=== PATIENT | female | born 1955 | race Caucasian/White ===

== ENCOUNTER 2023-12-11 00:44 | Inpatient (IN) | payer MEDICARE, SELFPAY ==
[2023-12-10 20:53] VITALS: BP 149/98
[2023-12-10 21:26] LABS: % Basophils 0.4 % (0-2); % Immature Granulocytes 0.4 % (0-0.5); % Lymphocytes 14.6 % (20.5-51.1); % Monocytes 6.1 % (1.7-9.3); % Neutrophils 78.5 % (42.2-75.2); Absolute Lymphocytes 1.1 10^3/uL (1.2-3.4); Absolute Monocytes 0.5 10^3/uL (0.1-0.6); Absolute Neutrophils 5.9 10^3/uL (1.4-6.5); Hematocrit 33.4 % (37.0-47.0); Mean Corp Hgb Conc. 35.9 g/dL (33.0-37.0); Mean Corpuscular Hgb 31.4 pg (27.0-31.0); Mean Corpuscular Volume 87.4 fL (81.0-99.0); Mean Platelet Volume 10.7 fL (7.4-10.4); Nucleated Red Blood Cells % 0 %; Platelet Count 193 10^3/uL (130-400); Red Blood Cell Count 3.82 10^6/uL (4.20-5.40); Red Cell Dist. Width 12.5 % (11.5-14.5); White Blood Cell Count 7.5 10^3/uL (4.8-10.8)
[2023-12-10 21:51] LABS: ALT (SGPT) 19 U/L (0-35); AST (SGOT) 30 U/L (14-36); Albumin 4.5 g/dl (3.5-5.0); Alkaline Phosphatase 93 U/L (38-126); Blood Urea Nitrogen 21 mg/dl (7-17); Calcium 9.8 mg/dl (8.4-10.2); Carbon Dioxide 24 mmol/L (22-30); Chloride 95 mmol/L (98-107); Glucose 117 mg/dl (70-99); Potassium 4.4 mmol/L (3.5-5.1); Sodium 126 mmol/L (135-145); Total Bilirubin 0.5 mg/dl (0.2-1.3); Total Protein 6.6 g/dl (6.3-8.2); eGFR > 60.00
--- NOTE | 2023-12-10 21:58 | ED.GENMED ---
History of Present Illness
General
Chief Complaint: Change in Mental Status
Source: patient and family
Exam Limitations: altered mental status
Time Seen by Provider: 12/10/23 21:46
History of Present Illness
History of Present Illness:
This is a 68 year old female that is brought in by family with c/o change in mental status. Family states that this afternoon patient became confused. States that she is unable to remember things. States that she was fine this morning as she had
conversation with friends on the phone. States that she called a friend around 6-7 pm tonight and was confused. States that at one point she was talking but made no sense. States that they also feel that she did not take her medication today as
there were pills in her bottles. Denies any fever, chills chest pain, SOB, abd pain, nausea, vomiting, diarrhea, headache, dizziness, urinary burning
Past History
Past History
ED Past Medical History: Psychiatric (Anxiety, depression, Bipolar, ADHD, ) and Other (Terrets)
ED Past Surgical History: Orthopedic (Foot surgery, ), Tonsilectomy and Other (Facial surgery, Breast surgery, oral surgery, )
Social History
Tobacco: Non-smoker
Alcohol: Occasional
Personal: Single
Living: alone
Review of Systems
Review of Systems
All Other Systems: ROS reviewed and negative except as documented in HPI and ROS
Constitutional: Reports no symptoms; Denies fever or chills
EENT: Reports no symptoms
Respiratory: Reports no symptoms; Denies cough or trouble breathing
Cardiac: Reports no symptoms; Denies chest pain
ABD/GI: Reports no symptoms; Denies abdominal pain, nausea, vomiting or diarrhea
: Reports no symptoms; Denies dysuria, frequency or urgency
Musculoskeletal: Reports no symptoms
Skin: Reports no symptoms
Neurological: Reports other (Unable to remember things Confused); Denies dizzy or headache
Psychiatric: Reports no symptoms
Phy Exam
General Physical Exam
General Presentation: no apparent distress
General age: appears stated age
General Skin: warm and dry
General Habitus: normal
General Mental: confused (but able to answer some questions and follows commands, doesn't remember talking with friend)
General Hydration: appears well hydrated
ENT Exam
ENT Exam: TM's normal, pharynx normal and neck supple
Eye Exam
Eye Exam: PERRL, EOMI and other (contusion noted on the lower lids)
Cardiovascular Exam
Cardiovascular Exam: regular rate/rhythm, no edema, no murmur and normal peripheral pulses
Pulmonary Exam
Pulmonary Exam: lungs clear, no respiratory distress, no rales, chest non tender, no crackles, no rhonchi, no wheezing and no cough
Gastrointestinal Exam
Gastrointestinal Exam: normal bowel sounds, non tender, soft, no organomegaly, no pulsatile mass and non distended
NIH Stroke Score
Level of Consciousness: 0 - Alert
LOC questions: 1-Answers one correctly
LOC Commands: 0-Performs both correctly
Best Gaze: 0-Normal
Visual Anderson: 0=Normal, no visual loss
Facial palsy: 0=Normal, symmetrical
Motor - Right Arm: 0=No drift 10 seconds
Motor - Left Arm: 0=No drift 10 seconds
Motor - Right Le-No drift 5 seconds
Motor - Left Le-No drift 5 seconds
Limb Ataxia: 0-Absent
Sensation: 0-Normal
Best Language: 0-No aphasia
Dysarthria: 0-Normal
Extinction and Inattention: 0-No abnormality
Total Score:: 1
Musculoskeletal Exam
Musculoskeletal Exam: full ROM, no edema and other (Hand grasp and push pulls equal)
Skin Exam
Skin Exam: normal color, warm/dry, no petechia and other (contusion on the lower eye lids)
Psychiatric Exam
Psychiatric Exam: other (calm but confused)
Course
Orders/Labs/Results
Orders:
Orders
12/10/23 21:19
Complete Blood Count/With Diff Urgent
Comprehensive Metabolic Panel Urgent
12/10/23 21:33
CT Head W/o Iv Contrast Urgent
Comment:
Reason For Exam: altered mental status
12/10/23 21:58
0.9% Sodium Chloride 1000 ml [Nss] 1,000 ml IV BOLUS
12/10/23 22:08
Electrocardiogram (*1) Urgent
Reason for Study: TIA/Stroke
EKG- Treatment ONCE
12/10/23 22:15
Troponin I Urgent
12/10/23 23:02
Urinalysis Reflex To Culture Urgent
Date Specimen was Collected: 12/10/23
Time Specimen was Collected: 23:01
Urine Microscopic Reflex Cult Urgent
Abnormal Lab Results
12/10/23 12/10/23
21:19 23:02
RBC 3.82 L 10^6/uL
(4.20-5.40)
Hct 33.4 L %
(37.0-47.0)
MCH 31.4 H pg
(27.0-31.0)
MPV 10.7 H fL
(7.4-10.4)
Absolute Lymphs (auto) 1.1 L 10^3/uL
(1.2-3.4)
Neutrophils % 78.5 H %
(42.2-75.2)
Lymphocytes % 14.6 L %
(20.5-51.1)
Sodium 126 L mmol/L
(135-145)
Chloride 95 L mmol/L
(98-107)
BUN 21 H mg/dl
(7-17)
Glucose 117 H mg/dl
(70-99)
Urine Ketones Trace A
(Negative)
Leukocyte Esterase Rfl Trace A
(Negative)
Urine Bacteria (Reflex) Few A
(Negative)
12/10/23 21:19
12/10/23 21:19
Hyponatremia, Chloride low. Dehydration. hyperglycemia, Urine negative for infection.
Vital Signs
Initial and Last Documented VS:
Initial Vital Signs
Temp Pulse Resp BP Pulse Ox
98.2 F 90 16 149/98 99
12/10/23 20:53 12/10/23 20:53 12/10/23 20:53 12/10/23 20:53 12/10/23 20:53
Last Documented Vital Signs
Temp Pulse Resp BP Pulse Ox
98.2 F 79 14 146/85 95
12/10/23 20:53 12/10/23 23:30 12/10/23 23:30 12/10/23 23:13 12/10/23 23:30
MDM/Problems Addressed
Differential Diagnosis Includes:
Hyponatremia. Possible Seizure, Bipolar episode
MDM/Problems Addressed:
This is a 68 year old female that comes in with family. Family states that the patient is confused. staes that she was fine this morning and tonight she called and friend and was confused. states that she also for a few min was trying to talk but
she was not making any sense.
will check labs. Urine. CT head.
back into see patient and Niece. Explained that her blood work shows that her Sodium is low. CT of head result is pending. With patient confusion, will admit. Hospitalist notified
Chronic conditions affecting care: Psychiatric illness
Acute Exacerbation and/or Progression of Chronic Illness: Psychiatric illness
*Radiology
Radiology exam reviewed: radiology read reviewed (Chest head night hawk- No acute intracranial hemorrhage, mass or mass-effect. 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 Mild periventricular white matter changes and
atrophy. Skull intact. )
*Pulse Oximetry
Patient hypoxic: no
*EKG
Interpreted by ED Provider?: Yes
Heart Rate: 74
Rate: normal
Rhythm: sinus
Kyle: normal axis
Interval: normal interval
QRS Pattern: normal QRS
Ischemia: no ischemia
*Critical Care Note
Total Time (30-74mins, 75-104mins- exclusive of procedures): Not Applicable
ED Attending Note
-
Portions of this chart may have been created with voice recognition software.� Occasional wrong word or��sound alike� substitutions may have occurred due to the inherent limitations of voice recognition software.
Discharge Plan
Departure
Patient Disposition: Admit
Date of Disposition: 12/10/23
Time of Disposition: 23:39
Admit to: Med/Surg
Presentation/result/management discussed w/ accepting MD/DO: Hospitalist
Patient with high blood pressure during this ER visit?: Yes
Condition: Good
Covid-19: Not Applicable
Discharge Problem:
Acute hyponatremia, Mental confusion
Prescriptions:
No Action
rosuvastatin 10 mg tablet
10 mg PO DAILY
lamotrigine 200 mg tablet extended release 24hr
200 mg PO BID
Ingrezza 40 mg capsule
40 mg PO DAILY
Trintellix 20 mg Tablet
20 mg PO DAILY
Patient Comments:
02/07/22: confirmed with nurse that patient takes this medication
diphenhydramine HCl 50 mg Capsule
50 mg PO HS PRN (Reason: sleep )
multivitamin Tablet
1 tab PO DAILY
calcium 600 mg Capsule
1,800 mg PO DAILY
omega 6-gmm-kby-fish oil [Fish Oil] 1,200 (144-216) mg Capsule
1 cap PO DAILY
biotin 5,000 mcg Tablet,Chewable
5,000 mcg PO DAILY
Glucosamine Triple Strength
2 tab PO DAILY
melatonin
PO HS
Rx Instructions:
unknown dose
minoxidil 10 mg Tablet
10 mg PO DAILY
famotidine
PO HS
Rx Instructions:
unknown dose
finasteride
PO DAILY
Rx Instructions:
unknown dose
Referrals:
UNKNOWN - PT DOES,NOT KNOW [Family Provider] -
Interventions
Interventions:
*Risk Screen - Suicide Last Done: 12/10/23 21:05
*General Assessment Last Done: 12/10/23 21:05
*Neglect/Abuse Screening Last Done: 12/10/23 21:05
ED- Neurological Assessment Last Done: 12/10/23 21:05
Discharge Date and Time
Print Language: ALBANIAN
[2023-12-10] MEDS: NSS 1000 IV (22:06)
[2023-12-10 22:41] VITALS: BP 145/86
[2023-12-10 22:44] LABS: Troponin I < 0.012 ng/ml
[2023-12-10 22:54] VITALS: BMI 24.2
[2023-12-10 23:09] LABS: Urine Albumin Negative (Neg - Trace); Urine Bilirubin Negative (Negative); Urine Character Clear (Clear); Urine Color Straw; Urine Glucose Negative (Negative); Urine Ketone Trace (Negative); Urine Leukocyte Trace (Negative); Urine Nitrite Negative (Negative); Urine Occult Blood Negative (Negative); Urine Urobilinogen Negative (Neg - 1+)
[2023-12-10 23:13] VITALS: BP 146/85
[2023-12-10 23:21] LABS: Urine Bacteria Few (Negative); Urine Red Blood Cell 0-2 /HPF (0-2); Urine Squamous Cell 0-2 /LPF (Few)
[2023-12-11 00:03] VITALS: BP 110/83
--- NOTE | 2023-12-11 00:12 | HPS.HSE ---
Family Physician
-
Family Physician: NOT KNOW UNKNOWN - PT DOES
Chief Complaint
-
AMS
History of Present Illness
68F HX Anxiety on lamotrigine , finasteride for BPH seen at ER for evaluation of AMS.
- noticed by family and frind for confusion , non sensicl conversation in the evening
- seems normal mental state in AM while she is on the phone with friend
- Non acute focal weakness
ROS
Denies any fever, chills chest pain, SOB, abd pain, nausea, vomiting, diarrhea, headache, dizziness, urinary burning
Medical History
Past Medical History
Past Medical History: Reports Other
Additional Past Medical History:
Anxiety, depression, Bipolar, ADHD,
Tourette syndrome
Past Surgical History: Reports Other
Additional Past Surgical History:
Foot surgery,
Tonsillectomy
Facial surgery
Breast surgery
Oral surgery
Social History
Tobacco: Non-smoker
Alcohol: Other (Reports she drinks alot but Niece at bed side denied )
Personal: Single
Living: Alone
Family History
Family History: Not pertinent
Allergies / Home Medications
Allergies reflects when Allergies were last updated in [facility].
Home Medications with original date entered in [facility]
Allergy/Medication List:
Allergies
Allergy/AdvReac Type Severity Reaction Status Date / Time
No Known Allergies Allergy Unverified 12/10/23 23:16
Home Medications
lamotrigine 200 mg tablet,extended release 24 hr 200 mg PO BID Mental Health/Anxiety 02/04/22
rosuvastatin 10 mg tablet 10 mg PO DAILY High cholesterol 02/04/22
valbenazine 40 mg capsule (Ingrezza) 40 mg PO DAILY Tourette Syndrome 02/04/22
vortioxetine 20 mg tablet (Trintellix) 20 mg PO DAILY Mental Health/Anxiety 02/07/22
diphenhydramine HCl 50 mg capsule 50 mg PO HS PRN sleep 02/09/22
Glucosamine Triple Strength 2 tab PO DAILY 12/10/23
biotin 5,000 mcg chewable tablet 5,000 mcg PO DAILY 12/10/23
calcium 600 mg capsule 1,800 mg PO DAILY 12/10/23
famotidine PO HS 12/10/23
finasteride PO DAILY 12/10/23
melatonin PO HS 12/10/23
minoxidil 10 mg tablet 10 mg PO DAILY 12/10/23
multivitamin 1 tab PO DAILY 12/10/23
omega 9-nze-cvw-fish oil 1,200 mg (144 mg-216 mg) capsule (Fish Oil) 1 cap PO DAILY 12/10/23
Review of Systems
-
Constitutional: Reports No Symptoms
EENT: Reports No Symptoms
Respiratory: Reports No Symptoms
Cardiac: Reports No Symptoms
Abdomen/GI: Reports No Symptoms
: Reports No Symptoms
Musculoskeletal: Reports No Symptoms
Skin: Reports No Symptoms
Neurological: Reports See HPI
Endocrine: Reports No Symptoms
Hematologic/Lymphatic: Reports No Symptoms
Psych: Reports No Symptoms
Physical Exam
Vital Signs
Vital Signs
Temp Pulse Resp BP Pulse Ox
98.2 F 83 19 110/83 97
12/10/23 20:53 12/11/23 00:03 12/11/23 00:03 12/11/23 00:03 12/11/23 00:03
Physical Exam
General: Well Developed, No Apparent Distress and Other (thin )
HEENT: NormoCephalic, Moist mucous membranes, Atraumatic and Other (b/l lower eylids echymosis - reports she had surgery )
Respiratory: Clear
Cardiac: S1/S2 and Regular Rhythm; No Murmur or Rub
GI: Soft, Non Tender, Non Distended and Normal Bowel Sounds; No Organomegaly
Rectal: Deferred by Provider
Musculoskeletal: No Clubbing, No Cyanosis and No Edema
Skin: No Rash
Neuro: Nonfocal/grossly intact
Laboratory Results
-
12/10/23 21:19
12/10/23 21:19
Laboratory Results
Total Bilirubin 0.5 mg/dl (0.2-1.3) 12/10/23 21:19
AST 30 U/L (14-36) 12/10/23 21:19
ALT 19 U/L (0-35) 12/10/23 21:19
Alkaline Phosphatase 93 U/L (38-126) 12/10/23 21:19
Troponin I < 0.012 ng/ml 12/10/23 22:15
Data Reviewed
-
CT Scan: Report Reviewed by me
Lab Data: Labs Reviewed by me
Impression/Plan
-
Reviewed VS: unremarkable
Data
Unremarkable CBC
Na 126 - baseline is 135
eGFR > 60
NEG TPNI
NEG UA
HCT :
No acute process.
Tiny chronic appearing Rt superior posterior cerebellar infarct
EKG
NORMAL SINUS RHYTHM
NORMAL ECG
NO PREVIOUS ECGS AVAILABLE
Last hospitalist admission: 02/05/22 - 02/11/22
ASSESSMENT & PLAN
Pending Rx reconciliation
Acute hyponatremia : ADH excess vs water excess
Clinically euvolemic
- s/p 1 L NS at ER then FR 1L daily
- Pending Ur Na, Ur Osm, Sr Osm amd TSH
- Trend Na in AM
- Renal consult
Acute AMS : NEG HCT for acute process
TME vs MCI vs ETOH related
NFND by exam
- check CXR
- check UA
- To consider Neuro consult eval in AM
b/l lower eyelids ecchymosis - reports she had surgery , details not available and niece does not know
ETOH use disorder: Reports she drinks a lot sometime a bottle daily but Niece at bed side denied
Unable to quantify amount she drinks and daily or waht not : she reports - I don't know
- check GGT
- Observe MSAS
- Psych consult
Anxiety, depression, Bipolar, ADHD,
Tourette syndrome
- cont all OP Meds s/p reconciliation
- await Psych eval
DVT Px: SQH
Code: Full code
IP MS
[2023-12-11 00:59] LABS: Urine Sodium 67 mmol/L (30-90)
[2023-12-11 01:31] LABS: Osmolality Serum 270 mOsm/kg (275-300)
[2023-12-11 01:31] LABS: Amphetamines Negative (Negative); Barbiturates Negative (Negative); Benzodiazepines Negative (Negative); Buprenorphine Negative (Negative); Cocaine Negative (Negative); Marijuana Negative (Negative); Methadone Negative (Negative); Methamphetamines Negative (Negative); Opiates Negative (Negative); Osmolality Urine 313 mOsm/kg (300-900); Phencyclidine Negative (Negative); Tricyclic Antidepressants Negative (Negative)
[2023-12-11 01:33] LABS: GGTP 32 U/L (12-43)
[2023-12-11 02:19] VITALS: BMI 22.8
[2023-12-11] MEDS: MELATONIN 3 MG PO ×2 (02:52→21:45)
[2023-12-11 03:00] VITALS: BP 136/86
--- NOTE | 2023-12-11 03:00 | PTCARENOTE ---
Patient received from ED, ambulated from stretcher to bed, AAOx3. Can not recall events of during the day. States she drinks ' a lot of water every day', also says she may have drank a bottle of wine. Apical regular, no edema. Lungs clear.
Abdomen soft with positive bowel sounds. #20 g in RAC flushed and patent. Bed alarm on. Plan of care discussed, call moya within reach
[2023-12-11 03:59] LABS: Alcohol None Detected
[2023-12-11 05:59] VITALS: BMI 22.7
[2023-12-11 06:45] LABS: Hematocrit 35.5 % (37.0-47.0); Hemoglobin 12.4 g/dL (12.0-16.0); Mean Corp Hgb Conc. 34.9 g/dL (33.0-37.0); Mean Corpuscular Hgb 31.4 pg (27.0-31.0); Mean Corpuscular Volume 89.9 fL (81.0-99.0); Mean Platelet Volume 10.4 fL (7.4-10.4); Platelet Count 200 10^3/uL (130-400); Red Blood Cell Count 3.95 10^6/uL (4.20-5.40); Red Cell Dist. Width 12.4 % (11.5-14.5); White Blood Cell Count 7.1 10^3/uL (4.8-10.8)
[2023-12-11 07:07] LABS: Blood Urea Nitrogen 13 mg/dl (7-17); Calcium 10.4 mg/dl (8.4-10.2); Carbon Dioxide 30 mmol/L (22-30); Chloride 99 mmol/L (98-107); Estimated Creatinine Clearance 77 ml/min; Glucose 93 mg/dl (70-99); Sodium 136 mmol/L (135-145); eGFR > 60.00
[2023-12-11 07:35] VITALS: BP 132/81
[2023-12-11 07:36] LABS: TSH 2.11 uIU/ml (0.47-4.68)
[2023-12-11] MEDS: LONITEN 2.5 MG PO ×2 (08:10→20:30)
[2023-12-11] MEDS: THIAMINE INJECTION 200 MG IV ×2 (08:11→20:19)
[2023-12-11] MEDS: CRESTOR 10 MG PO (08:15)
[2023-12-11] MEDS: FOLVITE 1 MG PO (08:15)
[2023-12-11] MEDS: THERAGRAN 1 TABLET PO (08:15)
[2023-12-11] MEDS: HEPARIN 5000 UNITS SC ×2 (08:15→20:18)
[2023-12-11] MEDS: PROTONIX 40 MG PO (08:15)
--- NOTE | 2023-12-11 10:41 | CM ---
Patient seen bedside, initial assessment completed. Patient resides independently in a condo, full flight of steps into home, then all one level. Patient denies use of DME, VN, or SNF history. Patient PCP Micki Dye, pharmacy [facility] in
[place]. Patient provided copies of insurance cards, CM will fax photos of insurance cards to admissions. Patient confirms prescription coverage through her insurance. CM discussed consult received for substance counseling. Patient declines
resources at this time, reports she does drink alcohol but does not feel she needs services. CM will continue to follow for all discharge planning needs.
Plan; home no needs likely, declining [facility] at this time.
[2023-12-11 11:37] LABS: Blood Urea Nitrogen 14 mg/dl (7-17); Calcium 10.2 mg/dl (8.4-10.2); Carbon Dioxide 28 mmol/L (22-30); Chloride 98 mmol/L (98-107); Estimated Creatinine Clearance 77 ml/min; Glucose 82 mg/dl (70-99); Potassium 4.6 mmol/L (3.5-5.1); Sodium 134 mmol/L (135-145); eGFR > 60.00
--- NOTE | 2023-12-11 12:23 | CON.NEURO4 ---
Addendum entered and electronically signed by Liliana Story DO 12/11/23 18:29:
Studies reviewed.
I have personally examined the patient. I agree with the PUBLIC SAF[employer] POLICE's Note.
My addenda:
68 year-old female with a history of bipolar disorder admitted with confusion and memory issues. She takes several medications but reports she has been on them for several years. Found to be hyponatremic; could be the cause for her symptoms but
unclear why this would occur after being on these medications for all these years. EEG was normal. MRI brain pending. If negative for clear cause for symptoms would consider LP. Continue ETOH w/d protocol. Will c/t follow.
Original Note:
Consultation - Neurology 4
-
CONSULTING PHYSICIAN: Dr. Liliana Story
REFERRING PHYSICIAN: Dr. Braxton Palma
DICTATED BY: UMA Hitchcock
DATE/TIME OF REQUEST: 12/11/2023
DATE/TIME OF CONSULTATION: 12/11/2023
Reason for Consultation: change in mental status
History of Present Illness:
This is a 68-year-old female patient with a past medical history as noted below who presented to the hospital on 12/10/2023 with change in mental status. Her niece was called by a friend of the patient who reported that she was not herself. Friend
had reported confusion and nonsensical speech. Patient reports that she has been feeling confused for some time. She cannot recall when the last time she felt normal. Patient reports she is unable to retain any information. She believes she has
been taking her medications, but her niece had reported that yesterdays medications were still in the pill box. She takes lamotrigine for mood as well as Trintellix and takes Ingrezza for Tourette Syndrome. She admits to a bi-polar diagnosis and
her primary psychiatrist is Dr. Pramod jarrett. Today she can recall she was supposed to have meetings with her financial consultant and a doctors appointment with her ENT but she cannot remember if she actually went to these appointments. She denies
any focal weakness. She denies any changes in vision dizziness. She denies any trouble with swallowing. She denies any trouble with balance or vision. She reports she did not drive yesterday but she is unsure if she had driven previous driving
throughout the week. Her niece reports she was unable to retain any information yesterday,and feels today she has improved. She denies any similar episodes. She was significantly hyponatremic at 126 upon arrival to the ER. Head CT was
unremarkable. She does not take an antiplatelet.
Past Medical History:
Anxiety, depression, Bipolar, ADHD,
Tourette syndrome
Anemia
fibromyalgia
RA
Surgical History:
Foot surgery,
Tonsillectomy
Facial surgery
Breast surgery
Oral surgery
Family History: mother with history of dementia
Social History: Pt lives a lone. She does drink about 1 bottle of wine about 2 x's a week. She also may have 1-2 drinks once or twice a week. She si retired. 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 She does not use any illicit drugs.
Allergies: see below
Home Medications: see below
Review of Symptoms:
Patient denies any fever, headache, chest pain, shortness of breath, GI or symptoms.
Vital Signs: see below
Physical Exam:
The patient is afebrile, heart sounds S1 and S2 are regular, no dyspnea noted
Neurologic Examination:
The patient is awake, alert and oriented x 3. She is able to follow commands and answer questions appropriately. There is no aphasia or dysarthria. On cranial nerve assessment, pupils are 3 mm bilateral, round and reactive to light and
accommodation. Visual jay are full. Extraocular movements are intact. Facial sensations are intact and bilaterally symmetrical, there is no facial asymmetry. Hearing is intact bilaterally to normal conversation volume. Tongue palate and uvula
are midline. Sternocleidomastoid strengths are full bilaterally. Motor strengths are 5/5 bilateral upper and lower extremities on medical research [place] scale. There is no drift or involuntary movement noted. Sensations of light touch and
temperature are intact and bilaterally symmetrical. There was no extinction noted on double simultaneous stimulation. Coordination is intact by finger to nose bilaterally.
Lab Results: see below
Neuro Imaging: CT head 12/10/2023-No acute intracranial abnormality.
Impression:
KARLA BECERRIL is a 68 year old F who has presented to the hospital with change in mental status.
Differentials for the patient's presentation include:
Seizure
Hyponatremia
less likely ischemic stroke
exacerbation of underlying cognitive deficits
ETOH use may also be contributing to symptoms
Recommendations:
-check EEG, if seizure activity noted on EEG will need to start AED
-check MRI brain with and without contrast
-check lamotrigine level
-monitor sodium level, if sodium remains low adjustments may need to be made to psychiatric medications
-appreciate psych consultation
-check lamotrigine level
-check lipids/HgbA1c
-check B12 and folate levels
-start ASA 81 mg-if MRI negative for ischemic stroke can discontinue
-OT/speech therapy for evaluation and cognitive testing
-DVT prophylaxis
-may benefit for outpatient neuropsychological testing
-as an outpatient should avoid ETOH
Discussed patient care with patient, zarina over the phone and neurologist, Dr. Story.
--- NOTE | 2023-12-11 12:48 | CON.MD ---
Consultation - Medical
-
patient seen chart reviewed. patient is a 68 year old woman who comes to w change in mental status. she reports that there was a period yesterday when she felt very very confused and even today whiles she feels better she is still struggling
with memory. she could not tell me the name of her psychiatrist whom she has seen for many years. 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 she has a hx of depression. chart reports 'depression anxiety adhd and bipolar' she asked me what does adhd stand for. she does not think she is bipolar then added 'maybe bipolar two' she takes trintellix 20
mg lamictal 200 mg total daily ingrezza 40 mg daily benadryl 50 mg q hs and melatonin . she says she takes ingrezza for 'tourette's' as none of the other medications were effective. she could not tell me what sx she experienced re tourette's.
the patient reports periods of deep depression where she will drink one bottle of wine 'once or twice' weekly. in addition she will go out for :happy hour' or lunch with friends and drink one or two drinks. she denied having experienced wd sx in
the form of sweats shakes sz etc. sleep is fair with above meds. appetite is 'too good' she has not been suicidal. there is nothing to suggest psychosis.
past psych hx see above patient denied psych hospitalizations. she had to look in her phone to find the name of her psychiatrist of many years dr lc jarrett.
past medical hx patient w hx aspiration pneumonia acording to the chart patient did not mention ty his. hx anemia (hgb 10.7 arthritis. chart says RA and fibromyalgia (external med summary ) but patient asked me what these illnesses are and
then said she did not have them. hx 'breast surgery ' according to chart gerd she takes finasteride and minoxidil as she started losing her hair a couple of years ago. also takes multivit omega three biotin calcium crestor for hld hyponatremia
noted (126) on admit but nl now. had facelift surgery in 2021 complicated by expanding neck hematoma requiring surgery here at [facility] no acute she said she is scheduled for knee replacement.
fh dad w anxiety
substance abuse see above denied any other substance abuse
social [place]. never m no kids. lived in [place] for thirty years working in [employer]. 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 see above no hx sexual or physical trauma family is
supportive. she has friends. sometimes feels bored. when i asked re hobbies she said she goes out for lunch and happy hour. masters level of education
mse alert but struggled to answer questions she should have answered easily see above. she simply could not remember. even the name of the [employer] pres took her a moment to answer. she was fully oriented but she looked on the wall behind me to get the
date. her speech appeared generally fluid and normal in rate and tone. thought process goal oriented no psychosis mood now is neutral some anxiety which is understandable. abov aver intelligence insight judgment ok
dx change in mental status/ impaired memory unknown etiology, unspecified depression possible bipolar r.o etoh use disorder
recommendations clearly there is something going on here. i don't think this is psychiatric. could be secondary to hypontremia now resolved although memory issue remains albeit improved. mri has been ordered . neuro consult has been ordered.
she is on several meds which could account for hyponatremia....lamotrogine trintellix minoxidil to name three but she has been on them for years. would refrain from benadryl at hs . alcohol also could be contributing alone or in part. she does not
recall last etoh. urged her to abstain from etoh and seek help if she cannot. in the meantime monitor msas. have held trintellix for now in any case it is not formulary. she should discuss w her psychiatrist whether to continue given low sodium.
psych will see her tomorrow
[2023-12-11] MEDS: LOW STRENGTH ASPIRIN 81 MG PO (14:27)
[2023-12-11 14:30] LABS: Glycohemoglobin (HgbA1c) 5.2 % (4.0-5.6)
--- NOTE | 2023-12-11 14:38 | W.PN.HOSP.TC ---
Today's Communication/Plan
-
MRI brain
EEG
b12/folate
psych, neuro eval
Assessment / Plan
Assessment / Plan
Physical Exam
General: Well Developed, No Apparent Distress and Other (thin )
HEENT: NormoCephalic, Moist mucous membranes, Atraumatic and Other (b/l lower eylids echymosis - reports she had surgery )
Respiratory: Clear
Cardiac: S1/S2 and Regular Rhythm; No Murmur or Rub
GI: Soft, Non Tender, Non Distended and Normal Bowel Sounds; No Organomegaly
Rectal: Deferred by Provider
Musculoskeletal: No Clubbing, No Cyanosis and No Edema
Skin: No Rash
Neuro: Nonfocal/grossly intact; AAOx3
Acute encephalopathy
� Unclear if low secondary to hyponatremia, chronic alcohol use, stroke
�Has a inability finding words
� Neurology consult
� MRI brain
� EEG
� Check lamotrigine level
� Monitor sodium level
� Check B12 folate
� Start aspirin 81
�Alcohol avoidance, outpatient neuropsychological testing
-psych consulted
-UA neg
Acute hyponatremia
�Euvolemic
� Resolved
� Continue to monitor
� TSH within normal limits
b/l lower eyelids ecchymosis - reports she had surgery , details not available and niece does not know
ETOH use disorder: Reports she drinks a lot sometime a bottle daily but Niece at bed side denied
Unable to quantify amount she drinks and daily or waht not : she reports - I don't know
- check GGT
- Observe MSAS
- Psych consulted
-outpatient neurpsych outpatient
Anxiety, depression, Bipolar, ADHD,
Tourette syndrome
- cont all OP Meds s/p reconciliation
- Psych eval
DVT Px: SQH
Code: Full code
Anticipated Discharge: > 48 hours
Subjective/Interval History
-
Date of Service: December 11, 2023
trouble finding words
Objective Data
-
Labs:
Laboratory Results
12/11/23 12/11/23
06:26 10:53
WBC 7.1
Hgb 12.4
Hct 35.5 L
Plt Count 200
Sodium 136 D 134 L
Potassium 4.0 4.6
Chloride 99 98
Carbon Dioxide 30 28
BUN 13 14
Creatinine 0.7 0.7
Glucose 93 82
Calcium 10.4 H 10.2
Vital Signs:
Vital Signs
Temp Pulse Resp BP Pulse Ox
98.7 F 74 19 132/81 97
12/11/23 07:35 12/11/23 07:35 12/11/23 07:35 12/11/23 08:10 12/11/23 07:35
I&O
12/10/23 12/11/23 12/12/23
06:59 06:59 06:59
Intake Total 1000 / 1000
Balance 1000 / 1000
Review of Systems
-
History Source: Patient
All other systems: Not reviewed unless documented
Data Reviewed
-
Diagnostic Radiology: Image personally visualized and interpreted and Report Reviewed by me
CT Scan: Image personally visualized and interpreted and Report Reviewed by me
Labs: Labs Reviewed by me
[2023-12-11 16:39] LABS: HDL Cholesterol 92 mg/dl; LDL Cholesterol, Calculated 69 mg/dl; Total Cholesterol 171 mg/dl (50-199); Triglyceride 53 mg/dl (10-149); Very Low Density Lipoprotein 10 mg/dl (0-30)
--- NOTE | 2023-12-11 16:58 | EEG.RPT ---
Electroencephalogram Report
Recording
Date of EE12/11/23
Type of EEG: Routine
Length of EEG recordin minutes
Done with Video Recording: Yes
Patient Status: Inpatient
Recording Conditions: Awake and Drowsy
Hyperventilation Performed: No
Photic Stimulation Performed: Yes
Report
LESS THAN 1 HOUR EEG REPORT
EEG INTERPRETATION:
Unremarkable EEG for age
CLINICAL CORRELATION:
A normal EEG does not rule out a diagnosis of epilepsy. If clinical suspicion for seizure persists, a prolonged recording may be warranted.
Clinical correlation is advised.
METHODS:
A 21 channel digitized electroencephalogram (EEG) was performed in the [facility]. The 10/20 international system of electrode placement was used with ECG and lateral/vertical eye movements recorded. Persyst quantitative EEG
analysis was performed.
ELECTROENCEPHALOGRAPHER IMPRESSION(S):
Quality of study
Good
Background
Unremarkable, well maintained, medium amplitude alpha-frequency and unremarkable anterior-posterior voltage gradient
With eye opening the background activity changed to a low voltage mixture of frequencies.
Sleep
Drowsiness present
Photic Stimulation
Did not activate the record
ECG
Normal sinus rhythm
[2023-12-11 17:59] LABS: Folate > 20.0 ng/ml (2.76-20); Vitamin B12 479 pg/ml (239-931)
[2023-12-11] MEDS: PEPCID 40 MG PO (21:45)
[2023-12-11 23:00] VITALS: BP 136/86
[2023-12-12 06:00] VITALS: BMI 22.5
[2023-12-12 07:00] VITALS: BP 145/80
[2023-12-12 07:23] LABS: Hematocrit 38.2 % (37.0-47.0); Hemoglobin 13.6 g/dL (12.0-16.0); Mean Corp Hgb Conc. 35.6 g/dL (33.0-37.0); Mean Corpuscular Hgb 32.3 pg (27.0-31.0); Mean Corpuscular Volume 90.7 fL (81.0-99.0); Mean Platelet Volume 10.3 fL (7.4-10.4); Platelet Count 192 10^3/uL (130-400); Red Blood Cell Count 4.21 10^6/uL (4.20-5.40); Red Cell Dist. Width 12.4 % (11.5-14.5); White Blood Cell Count 7.1 10^3/uL (4.8-10.8)
[2023-12-12 08:07] LABS: ALT (SGPT) 20 U/L (0-35); AST (SGOT) 34 U/L (14-36); Albumin 4.5 g/dl (3.5-5.0); Alkaline Phosphatase 81 U/L (38-126); Blood Urea Nitrogen 15 mg/dl (7-17); Calcium 10.4 mg/dl (8.4-10.2); Carbon Dioxide 27 mmol/L (22-30); Chloride 99 mmol/L (98-107); Estimated Creatinine Clearance 77 ml/min; Glucose 98 mg/dl (70-99); Potassium 3.8 mmol/L (3.5-5.1); Sodium 135 mmol/L (135-145); Total Bilirubin 0.5 mg/dl (0.2-1.3); Total Protein 6.6 g/dl (6.3-8.2); eGFR > 60.00
[2023-12-12] MEDS: PROTONIX 40 MG PO (08:15)
[2023-12-12] MEDS: THIAMINE INJECTION 200 MG IV ×2 (08:15→20:30)
[2023-12-12] MEDS: LOW STRENGTH ASPIRIN 81 MG PO (08:15)
[2023-12-12] MEDS: THERAGRAN 1 TABLET PO (08:15)
[2023-12-12] MEDS: LONITEN 2.5 MG PO ×2 (08:15→20:37)
[2023-12-12] MEDS: HEPARIN 5000 UNITS SC ×2 (08:15→20:28)
[2023-12-12] MEDS: CRESTOR 10 MG PO (08:15)
[2023-12-12] MEDS: FOLVITE 1 MG PO (08:15)
[2023-12-12] MEDS: PROSCAR 5 MG PO (08:15)
--- NOTE | 2023-12-12 11:56 | CM ---
Spoke with niece bedside
Patient lives alone and she had some concerns re memory.
EEG completed and MRI completed today.
Discussed possibility of assisted living and she stated patient will not agree.
Patient would decline VN.
patient has been evaluated by neruo and psychiatry, PT screening was completed and no skilled needs.
Plan: home no needs anticipated.
[2023-12-12 12:17] VITALS: BP 143/90; BP 163/111; PULSE 101
--- NOTE | 2023-12-12 12:51 | W.PN.HOSP.TC ---
Today's Communication/Plan
-
await neuro recs
possibly underlying dementia
will need outpatient work up
pt/ot
Assessment / Plan
Assessment / Plan
Physical Exam
General: Well Developed, No Apparent Distress and Other (thin )
HEENT: NormoCephalic, Moist mucous membranes, Atraumatic and Other (b/l lower eylids echymosis - reports she had surgery )
Respiratory: Clear
Cardiac: S1/S2 and Regular Rhythm; No Murmur or Rub
GI: Soft, Non Tender, Non Distended and Normal Bowel Sounds; No Organomegaly
Rectal: Deferred by Provider
Musculoskeletal: No Clubbing, No Cyanosis and No Edema
Skin: No Rash
Neuro: Nonfocal/grossly intact; AAOx3
Acute v Chronic encephalopathy
�Doubt because of hyponatremia - resolved with forgetfulness that still remains
- May be underlyign early onsent dementia
�Has a inability finding words
� Neurology consult
-EEG neg
� Check lamotrigine level
� Monitor sodium level
-b12, folate WNL
� Start aspirin 81
�Alcohol avoidance, outpatient neuropsychological testing
-psych consulted
-UA neg
Acute hyponatremia
�Euvolemic
� Resolved
� Continue to monitor
� TSH within normal limits
b/l lower eyelids ecchymosis - reports she had surgery , details not available and niece does not know
ETOH use disorder: Reports she drinks a lot sometime a bottle daily but Niece at bed side denied
Unable to quantify amount she drinks and daily or waht not : she reports - I don't know
- check GGT
- Observe MSAS
- Psych consulted
-outpatient neurpsych outpatient
Anxiety, depression, Bipolar, ADHD,
Tourette syndrome
- cont all OP Meds s/p reconciliation
- Psych eval
DVT Px: SQH
Code: Full code
Anticipated Discharge: Within 24 hours
Subjective/Interval History
-
Date of Service: December 12, 2023
Forgetful at times still
Objective Data
-
Labs:
Laboratory Results
12/12/23
06:57
WBC 7.1
Hgb 13.6
Hct 38.2
Plt Count 192
Sodium 135
Potassium 3.8
Chloride 99
Carbon Dioxide 27
BUN 15
Creatinine 0.7
Glucose 98
Calcium 10.4 H
Total Bilirubin 0.5
AST 34
ALT 20
Alkaline Phosphatase 81
Vital Signs:
Vital Signs
Temp Pulse Resp BP Pulse Ox
99.5 F 75 18 145/80 96
12/12/23 07:00 12/12/23 07:00 12/12/23 07:00 12/12/23 07:00 12/12/23 07:00
I&O
12/11/23 12/12/23 12/13/23
06:59 06:59 06:59
Intake Total 1000 / 1000 1020 / 1020
Balance 1000 / 1000 1020 / 1020
Review of Systems
-
History Source: Patient
All other systems: Not reviewed unless documented
Data Reviewed
-
Diagnostic Radiology: Image personally visualized and interpreted and Report Reviewed by me
CT Scan: Image personally visualized and interpreted and Report Reviewed by me
MRI: Report Reviewed by me
Labs: Labs Reviewed by me
--- NOTE | 2023-12-12 14:31 | W.PN.UPDATE ---
Update Note
Progress Note Update
Psychiatry follow up for altered mental status/impaired memory. history of unspecified depression/possible bipolar disorder. Today patient reports feeling overwhelmed and confused with everything that has occurred. She states she has difficulty
talking to doctors on her own. Her niece is present at bedside. Awaiting MRI results and neurology follow up. Hyponatremia resolved. Concern of whether her medications like Trintellix or Lamictal could have contributed to this though she has been on
them for years. Encouraged her to have hospital records sent to her outpatient psychiatrist Dr. Fulton and to discuss with him if she should continue them given low sodium. She also admits to drinking 'a lot of water' every day but this too is not
new for her. She has brought in her home supply of Lamictal ER, Ingrezza (for Tourette's per patient), and Trintellix.
A/P- 68 yo female with altered mental status/impaired memory as well as history of unspecified depression/possible bipolar disorder. Await MRI results/neurology follow up. Would continue to hold above psych medications for now. Will follow up
tomorrow.
[2023-12-12] MEDS: NON-FORMULARY ITEM PO ×4 (15:13→21:35)
[2023-12-12 15:21] VITALS: BP 116/77
--- NOTE | 2023-12-12 20:02 | W.PN.NEURO.1 ---
Today's Communication / Plan
-
labs
Neuro Assessment/Plan
Assessment
68 year-old female with a history of bipolar disorder admitted with confusion and memory issues. She takes several medications but reports she has been on them for several years. Found to be hyponatremic; improved since yesterday. Does admit she
drinks 'a lot of water but always has, this is nothing new.' EEG was normal. Reports that she 'sometimes drinks a whole bottle of wine when she's depressed and has been doing this more lately.' Also said repeatedly 'this might have happened to me
before, I'm not sure.' Niece does not recall any prior similar events. Denies any history of prior stroke but chronic lacunar infarcts were seen in the R cerebellum. Reviewed ddx of hyponatremia causing encephalopathy superimposed on some
undiagnosed baseline cognitive impairment; polypharmacy, ETOH could also be playing a role. Seizure, encephalitis seem less likely. (Does say she had neuropsychological testing done many years ago and does not know results. Mom had dementia 'at a
young age, with it in her early 70s.')
EEG: normal
MRI brain: no acute findings/abnormal enhancement
Mild age-related parenchymal atrophy. Chronic lacunar infarcts in the right cerebellar hemisphere. Small amount of T2/FLAIR hyperintense signal in the white matter of the bilateral cerebral hemispheres, most compatible with the changes of minor
chronic microangiopathic ischemia. No mass effect, midline shift, or extra axial collection. No abnormal parenchymal or meningeal enhancement. No abnormal signal intensity on diffusion-weighted images.
UDS negative
Lamictal level pending
Plan
-reviewed option of LP--will hold off for now as she has improved somewhat
-reviewed EEG results, that MRI brain does not account for this event
-continue ASA 81mg daily, Crestor; chronic stroke seen on imaging; will need stroke workup but as this is chronic, this can be done as an outpatient
-needs outpatient neuropsychological testing
-Lamictal level pending. B12, TSH normal. Check RPR, B1
-continue thiamine supplementation, ETOH w/d protocol
-will need OP f/u with Dr. Angel at [facility] her established neurologist, upon d/c
-continue neurochecks, seizure precautions
-would benefit from a living situation where she can have more support, currently lives alone
Subjective/Objective
Subjective Data
Date of Service: December 12, 2023
feels her confusion is gradually improving
does not remember details from yesterday and reports she feels overwhelmed talking to so many doctors
Objective Data
Vital Signs
Temp Pulse Resp BP Pulse Ox
100.2 F 109 18 116/77 95
12/12/23 15:21 12/12/23 15:21 12/12/23 15:21 12/12/23 15:21 12/12/23 15:21
Lab Results
12/12/23 06:57
12/12/23 06:57
Sodium 135 mmol/L (135-145) 12/12/23 06:57
Potassium 3.8 mmol/L (3.5-5.1) 12/12/23 06:57
BUN 15 mg/dl (7-17) 12/12/23 06:57
Glucose 98 mg/dl (70-99) 12/12/23 06:57
Calcium 10.4 mg/dl (8.4-10.2) H 12/12/23 06:57
LDL Cholesterol, Calc Cancelled 12/11/23 13:58
Vitamin B12 479 pg/ml (239-931) 12/11/23 10:53
Ur Buprenorphine Cancelled 12/11/23 02:21
Patient Allergies
No Known Allergies Allergy (Unverified 12/10/23 23:16)
Physical Exam
Extended Neurological Exam
Mood & Affect: Anxious
Attention Span & Concentration: Awake, Alert, Interactive and No Difficulty with 2 Step Request
Memory: Vague and Other (repetitive, does not recall details from yesterday but did remember seeing me before)
Tremor: Hand Tremor Absent and Head Tremor Absent
Involuntary Movement: None
Speech: Quality Unremarkable, Quantity Unremarkable and Rate of Production Unremarkable
Cranial Nerves III, IV, : Extraocular Movement: Extraocular Movement Full in all Directions
Cranial Nerve V: Facial Sensation: Facial Sensation Unremarkable to Cold
Cranial Nerve VII: Facial Symmetry: Normal Facial Symmetry
Cranial Nerve VIII: Hearing: Unremarkable Hearing to Normal Conversational Volume
Cranial Nerves IX, X: Palate Movement: Palate Elevation Symmetric
Cranial Nerve XI: Shoulder Shrug: Unremarkable
Cranial Nerve XII: Tongue Protusion: Midline
Muscle Strength, Overall: Full Throughout
Deep Tendon Reflexes: Unremarkable Throughout
Cold Sensation: Unremarkable
Coordination: Fodyev-oxtp-vwfijg Testing Unremarkable
Babinski Sign: Absent Bilaterally
[2023-12-12] MEDS: NON-FORMULARY ITEM 200 MG PO (20:26)
[2023-12-12] MEDS: MELATONIN 10 MG PO (21:22)
[2023-12-12] MEDS: PEPCID 40 MG PO (21:22)
[2023-12-12] MEDS: NON-FORMULARY ITEM 40 MG PO (21:23)
[2023-12-12 23:00] VITALS: BP 133/87
[2023-12-13 06:00] VITALS: BMI 22.3
[2023-12-13 07:30] VITALS: BP 127/80
[2023-12-13] MEDS: LOW STRENGTH ASPIRIN 81 MG PO (08:04)
[2023-12-13] MEDS: FOLVITE 1 MG PO (08:04)
[2023-12-13] MEDS: CRESTOR 10 MG PO (08:04)
[2023-12-13] MEDS: PROSCAR 5 MG PO (08:04)
[2023-12-13] MEDS: THERAGRAN 1 TABLET PO (08:04)
[2023-12-13] MEDS: NON-FORMULARY ITEM 200 MG PO (08:05)
[2023-12-13] MEDS: HEPARIN 5000 UNITS SC (08:13)
[2023-12-13 08:50] LABS: Hematocrit 41.1 % (37.0-47.0); Hemoglobin 14.6 g/dL (12.0-16.0); Mean Corp Hgb Conc. 35.5 g/dL (33.0-37.0); Mean Corpuscular Hgb 32.4 pg (27.0-31.0); Mean Corpuscular Volume 91.1 fL (81.0-99.0); Mean Platelet Volume 10.7 fL (7.4-10.4); Platelet Count 200 10^3/uL (130-400); Red Blood Cell Count 4.51 10^6/uL (4.20-5.40); Red Cell Dist. Width 12.7 % (11.5-14.5); White Blood Cell Count 8.8 10^3/uL (4.8-10.8)
[2023-12-13] MEDS: PROTONIX 40 MG PO (09:08)
[2023-12-13] MEDS: LONITEN 2.5 MG PO (09:08)
[2023-12-13 09:14] LABS: Blood Urea Nitrogen 23 mg/dl (7-17); Calcium 10.6 mg/dl (8.4-10.2); Carbon Dioxide 25 mmol/L (22-30); Chloride 102 mmol/L (98-107); Estimated Creatinine Clearance 90 ml/min; Glucose 101 mg/dl (70-99); Potassium 3.6 mmol/L (3.5-5.1); Sodium 136 mmol/L (135-145); eGFR > 60.00
[2023-12-13] MEDS: THIAMINE INJECTION 200 MG IV (09:30)
--- NOTE | 2023-12-13 11:35 | W.PN.UPDATE ---
Update Note
Progress Note Update
Psychiatry follow up for altered mental status/impaired memory. history of unspecified depression/possible bipolar disorder and alcohol use. Today patient reports feeling better. She slept last night. She denies memory issues from yesterday into
today. She is fully oriented. We discussed possible etiologies of hyponatremia including Trintellix, her excessive water drinking, and her excessive alcohol use. She admits to drinking a full bottle of wine in a couple hours twice a week. She says
she mostly does it to help her sleep and that it has been a problem for a long time. She has never been to detox/rehab and is not interesting in doing so at this time. I encouraged her to limit her water intake, abstain from alcohol, and to call her
psychiatrist augustine to discuss whether or not to continue Trintellix and if so, form a plan for monitoring sodium levels. She is agreeable and says she can get in contact with him tomorrow.
A/P- 68 yo female with altered mental status/impaired memory as well as history of unspecified depression/possible bipolar disorder and alcohol use disorder. Would continue to hold Trintellix until tomorrow when patient contacts her outpatient
psychiatrist Dr Fulton to formulate plan for this. Continue Lamictal and Ingrezza. Limit water intake. Avoid alcohol and consider D&A treatment program if unable to do so on her own. Neuropsych testing as an outpatient for memory concerns. Case
discussed with primary team. Psychiatry will sign off.
--- NOTE | 2023-12-13 11:51 | W.PN.HOSP.TC ---
Addendum entered and electronically signed by Braxton Palma MD 12/13/23 15:13:
[id number]
f/u bmp in 3-5 days
Original Note:
Today's Communication/Plan
-
-f/u neuro/neuropsych, psychiatry outpatient
-Reduce fluid intake - takes a gallon of water if not more a day - reduce to 64oz per day
-Stop Trintellix; if restarting Trintellix, will need to have close sodium monitoring outpatient
-EtOH cessation
Assessment / Plan
Assessment / Plan
Physical Exam
General: Well Developed, No Apparent Distress and Other (thin )
HEENT: NormoCephalic, Moist mucous membranes, Atraumatic and Other (b/l lower eylids echymosis - reports she had surgery )
Respiratory: Clear
Cardiac: S1/S2 and Regular Rhythm; No Murmur or Rub
GI: Soft, Non Tender, Non Distended and Normal Bowel Sounds; No Organomegaly
Rectal: Deferred by Provider
Musculoskeletal: No Clubbing, No Cyanosis and No Edema
Skin: No Rash
Neuro: Nonfocal/grossly intact; AAOx3
Acute v Chronic encephalopathy
�Possibly because of hyponatremia, especially in setting of Trintellix, alcohol abuse
-improved
-f/u neuro/neuropsych, psychiatry outpatient
-Reduce fluid intake - takes a gallon of water if not more a day - reduce to 64oz per day
-if no other etiologies, early onset dementia as her mother had may be a reason
-EEG neg
� Check lamotrigine level
-b12, folate WNL
� Start aspirin 81
-etoh avoidance
-UA neg
Acute hyponatremia
�Euvolemic
� Resolved
� Continue to monitor
� TSH within normal limits
-free water restriction
b/l lower eyelids ecchymosis - reports she had surgery , details not available and niece does not know
ETOH use disorder: Reports she drinks a lot sometime a bottle daily but Niece at bed side denied
Unable to quantify amount she drinks and daily or waht not : she reports - I don't know
- Observe MSAS
- Psych consulted
-outpatient neurpsych outpatient
-etoh cessation advised
Anxiety, depression, Bipolar, ADHD,
Tourette syndrome
- cont all OP Meds s/p reconciliation except Trintellix
-if restarting Trintellix, will need to have close sodium monitoring outpatient
- Psych eval
DVT Px: SQH
Code: Full code
More than 30 minutes spent in discharge including
Final examination of the patient
Summarizing hospital stay
Instructions for continuing care to all relevant caregivers
Preparation of discharge records, prescriptions, and referral forms
Total time spent (35 in minutes):
Anticipated Discharge: Today
Subjective/Interval History
-
Date of Service: December 13, 2023
appears much more alert today
Objective Data
-
Labs:
Laboratory Results
12/13/23
08:33
WBC 8.8
Hgb 14.6
Hct 41.1
Plt Count 200
Sodium 136
Potassium 3.6
Chloride 102
Carbon Dioxide 25
BUN 23 H
Creatinine 0.6
Glucose 101 H
Calcium 10.6 H
Vital Signs:
Vital Signs
Temp Pulse Resp BP Pulse Ox
99.4 F 80 16 127/80 97
12/13/23 07:30 12/13/23 07:30 12/13/23 07:30 12/13/23 07:30 12/13/23 07:30
I&O
12/12/23 12/13/23 12/14/23
06:59 06:59 06:59
Intake Total 1020 / 1020 480 / 480
Balance 1020 / 1020 480 / 480
Review of Systems
-
History Source: Patient
All other systems: Not reviewed unless documented
Data Reviewed
-
Diagnostic Radiology: Image personally visualized and interpreted and Report Reviewed by me
CT Scan: Image personally visualized and interpreted and Report Reviewed by me
MRI: Report Reviewed by me
Labs: Labs Reviewed by me
--- NOTE | 2023-12-13 11:57 | W.DS.TRANS ---
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
-
Discharge Instructions:
Discharge Diagnosis/Procedures Acute v Chronic encephalopathy
Hyponatremia
Excessive Alcohol Use
Diet Restrict fluids to 64 oz
Activity As tolerated
Blood Work BMP - Sodium in 3-5 days with pcp
Instructions:
Stand-Alone Forms:
Changes to Home Medications: Yes
Discharge Medications:
DC Medications w/original date entered in [facility]
lamotrigine 200 mg tablet,extended release 24 hr 200 mg PO BID Mental Health/Anxiety 02/04/22
valbenazine 40 mg capsule (Ingrezza) 40 mg PO DAILY Tourette Syndrome 02/04/22
biotin 5,000 mcg chewable tablet 5,000 mcg PO DAILY Supplement 12/10/23
calcium 600 mg capsule 1,800 mg PO DAILY Supplement 12/10/23
famotidine 40 mg PO HS Gastrointestinal Issue 12/10/23
finasteride 5 mg PO DAILY Urinary Issue 12/10/23
melatonin 10 mg PO HS Sleep 12/10/23
omega 5-aoa-bjr-fish oil 1,200 mg (144 mg-216 mg) capsule (Fish Oil) 1 cap PO DAILY Supplement 12/10/23
glucosamine sulf dipot chlr,msm,chond 550 mg-C 30 mg-ariane 1 mg capsule (Glucosamine Chondroitin) 1 cap PO DAILY Supplement 12/11/23
minoxidil 2.5 mg tablet 2.5 mg PO BID Blood Pressure 12/11/23
ulrefcdy-nppa-ivji 8 mg-folic 400 mcg-K 50 mcg-lutein 300 mcg tablet (Centrum Silver Women) 1 tab PO DAILY Supplement 12/11/23
omeprazole 20 mg tablet,delayed release 20 mg PO DAILY Gastrointestinal Issue 12/11/23
rosuvastatin 10 mg tablet 10 mg PO DAILY High Cholesterol 12/11/23
aspirin 81 mg chewable tablet 81 mg PO DAILY 30 days #30 tabs 12/13/23
Home Medication Changes
aspirin 81 mg chewable tablet 81 mg PO DAILY 30 days #30 tabs 12/13/23
Pending Results: No
--- NOTE | 2023-12-13 12:34 | CM ---
Spoke with patient bedside.
Patient agreeable to VN for medication management.
Family with concerns of memory problems, confusion.
Per patient she will go stay with a friend for a few days.
Explained to patient if she wants VN she will need to be homebound status.
IMM completed.
Plan: Home with VN
[2023-12-13 15:37] VITALS: BP 134/79
[2023-12-14 01:08] LABS: Lamotrigine (Lamictal) 4.7 ug/mL (3.0-15.0)
[2023-12-15 18:41] LABS: Syphilis/T. pallidum Ab Reflex Negative (Negative)
== END 2023-12-13 17:32 | disposition home health service (06) | DRG 641 ==
LOC: 4 WEST ACU 00:44
PROVIDERS: Clinical Nurse Specialist Family Health; Nurse Practitioner Adult Health; ADMITTING PHYSICIAN Internal Medicine; ATTENDING PHYSICIAN Internal Medicine; CONSULT PHYSICIAN Psychiatry & Neurology Neurology; EMERGENCY PHYSICIAN Emergency Medicine
DX: E87.1 Hypo-osmolality and hyponatremia (principal); G93.40 Encephalopathy, unspecified; F31.9 Bipolar disorder, unspecified; F41.9 Anxiety disorder, unspecified; F90.9 Attention-deficit hyperactivity disorder, unspecified type; F95.2 Tourette's disorder; E86.0 Dehydration; R73.9 Hyperglycemia, unspecified; F10.10 Alcohol abuse, uncomplicated; D64.9 Anemia, unspecified; R41.89 Other symptoms and signs involving cognitive functions and awareness; S00.12XA Contusion of left eyelid and periocular area, initial encounter; S00.11XA Contusion of right eyelid and periocular area, initial encounter; X58.XXXA Exposure to other specified factors, initial encounter; M79.7 Fibromyalgia; M06.9 Rheumatoid arthritis, unspecified; Z60.2 Problems related to living alone; Z82.0 Family history of epilepsy and other diseases of the nervous system
CPT/HCPCS: 70450; 70553; 71046; 80048; 80053; 80061; 80175; 80306; 81003; 81015; 82077; 82607; 82746; 82977; 83036; 83930; 83935; 84300; 84425; 84443; 84484; 85025; 85027; 86780; 87086; 93005; 95816; 96360; 97162; 97166; 99285; A9575

== ENCOUNTER 2024-04-05 12:53 | Emergency (ER) | payer MEDICARE, SELFPAY ==
[2024-04-05 12:55] VITALS: BP 149/93
[2024-04-05 13:19] LABS: % Basophils 0.6 % (0-2); % Eosinophils 0.2 % (0-6); % Immature Granulocytes 0.3 % (0-0.5); % Lymphocytes 8.7 % (20.5-51.1); % Monocytes 3.9 % (1.7-9.3); % Neutrophils 86.3 % (42.2-75.2); Absolute Lymphocytes 0.6 10^3/uL (1.2-3.4); Absolute Monocytes 0.3 10^3/uL (0.1-0.6); Absolute Neutrophils 5.6 10^3/uL (1.4-6.5); Hemoglobin 12.1 g/dL (12.0-16.0); Mean Corp Hgb Conc. 32.7 g/dL (33.0-37.0); Mean Corpuscular Hgb 30.3 pg (27.0-31.0); Mean Corpuscular Volume 92.5 fL (81.0-99.0); Mean Platelet Volume 10.5 fL (7.4-10.4); Nucleated Red Blood Cells % 0 %; Platelet Count 216 10^3/uL (130-400); Red Cell Dist. Width 12.7 % (11.5-14.5); White Blood Cell Count 6.4 10^3/uL (4.8-10.8)
[2024-04-05 13:29] LABS: APTT 23.1 Sec (23.4-35.0); INR 0.89; PT 12.4 Sec (11.4-14.6)
[2024-04-05 13:44] LABS: Troponin I < 0.012 ng/ml
[2024-04-05 13:45] LABS: ALT (SGPT) 25 U/L (0-35); AST (SGOT) 33 U/L (14-36); Albumin 4.8 g/dl (3.5-5.0); Alkaline Phosphatase 72 U/L (38-126); Blood Urea Nitrogen 22 mg/dl (7-17); Carbon Dioxide 28 mmol/L (22-30); Chloride 95 mmol/L (98-107); Glucose 112 mg/dl (70-99); Potassium 4.7 mmol/L (3.5-5.1); Sodium 133 mmol/L (135-145); Total Bilirubin 0.2 mg/dl (0.2-1.3); eGFR > 60.00
--- NOTE | 2024-04-05 15:55 | ED.CVA ---
History of Present Illness
General
Chief Complaint: CVA/TIA Symptoms
Time Seen by Provider: 04/05/24 15:35
Onset of Stroke Symptoms
Onset of symptoms known: Yes
Date of onset of symptoms: 04/05/24
History of Present Illness
History of Present Illness:
Patient is a 68-year-old female with a history of bipolar disorder, memory issues, recent admission for encephali felt to be related to hyponatremia. She presents with a period of altered mental status that is now resolved. She states it lasted
for about an hour this morning. She felt very confused. She was looking at her calendar and was unsure what her doctor appointments were about. States that this worried her very much. She denies any numbness weakness tingling. Denies any
dizziness denies any visual changes. Symptoms have resolved at this time. She reports that she takes an aspirin daily. She reports that she takes a multivitamin daily. She states that she does not drink alcohol anymore.
Past History
Past History
ED Past Medical History: Psychiatric (Anxiety, depression, Bipolar, ADHD, ) and Other (Terrets)
ED Past Surgical History: Orthopedic (Foot surgery, ), Tonsilectomy and Other (Facial surgery, Breast surgery, oral surgery, )
Social History
Tobacco: Non-smoker
Alcohol: Occasional
Personal: Single
Living: alone
Phy Exam
Physical Exam
Physical Exam:
GENERAL APPEARANCE: NAD, well developed/ well nourished
EYES lids/conjunctiva normal
EARS/NOSE/THROAT Mucous membranes moist, uvula midline without oral pharyngeal erythema, exudate or swelling
HEAD/NECK normocephalic atraumatic, neck is supple.
RESPIRATORY respiratory effort normal, speaks in full sentences, no accessory muscle use. Lungs clear to auscultation without rhonchi, wheezes, rales
CARDIAC Regular rate and rhythm, no edema.
ABDOMINAL Soft, ND/NT
MUSCLES/EXTREMITIES No abnormal range of motion, no swelling.
SKIN Warm, pink and dry. No rashes
NEUROLOGICAL Speech is clear and appropriate. Normal level of consciousness. 5/5 strength in all extremities. Sensation intact throughout. Normal memory
PSYCH Normal mood and affect. Judgement/competence is appropriate
Course
Orders/Labs/Results
Orders:
Orders
04/05/24 12:58
Electrocardiogram (*1) Urgent
Reason for Study: Other
Other Reason for Exam: Possible Stroke
04/05/24 12:59
EKG- Treatment ONCE
04/05/24 13:[address] [CT Head W/o Iv Contrast] Urgent
Comment:
Reason For Exam: intermittent confusion
04/05/24 13:08
Complete Blood Count/With Diff Urgent
Comprehensive Metabolic Panel Urgent
PTT Urgent
Prothrombin Time Urgent
Troponin I Urgent
Abnormal Lab Results
04/05/24
13:08
RBC 4.00 L 10^6/uL
(4.20-5.40)
MCHC 32.7 L g/dL
(33.0-37.0)
MPV 10.5 H fL
(7.4-10.4)
Absolute Lymphs (auto) 0.6 L 10^3/uL
(1.2-3.4)
Neutrophils % 86.3 H %
(42.2-75.2)
Lymphocytes % 8.7 L %
(20.5-51.1)
APTT 23.1 L Sec
(23.4-35.0)
Sodium 133 L mmol/L
(135-145)
Chloride 95 L mmol/L
(98-107)
BUN 22 H mg/dl
(7-17)
Glucose 112 H mg/dl
(70-99)
04/05/24 13:08
04/05/24 13:08
Vital Signs
Initial and Last Documented VS:
Initial Vital Signs
Temp Pulse Resp BP Pulse Ox
98.2 F 98 18 149/93 99
04/05/24 12:55 04/05/24 12:55 04/05/24 12:55 04/05/24 12:55 04/05/24 12:55
Last Documented Vital Signs
Temp Pulse Resp BP Pulse Ox
98.2 F 98 18 149/93 99
04/05/24 12:55 04/05/24 12:55 04/05/24 12:55 04/05/24 12:55 04/05/24 12:55
*Critical Care Note
Total Time (30-74mins, 75-104mins- exclusive of procedures): Not Applicable
ED Attending Note
ED Attending Note
ED Attending Note:
Unclear source of patient's temporary confusion although it is resolved at this time. Possibly TIA as patient did have a lacunar infarct and cerebellar infarct on MRI while admitted. She is already optimized on aspirin possibly metabolic in the
setting of chronic alcohol use. Patient is taking thiamine. There are no focal neurologic deficits. Do not feel that she would benefit from an inpatient admission at this time. CT head and labs reassuring. Sodium is 133.
-
Portions of this chart may have been created with voice recognition software.� Occasional wrong word or��sound alike� substitutions may have occurred due to the inherent limitations of voice recognition software.
Discharge Plan
Departure
Patient Disposition: Home (Routine Discharge)
Date of Disposition: 04/05/24
Time of Disposition: 15:57
Patient with high blood pressure during this ER visit?: Yes
Discharge Problem:
Memory changes
Prescriptions:
No Action
lamotrigine 200 mg tablet extended release 24hr
200 mg PO BID
Ingrezza 40 mg capsule
40 mg PO DAILY
calcium 600 mg Capsule
1,800 mg PO DAILY
omega 7-khz-kks-fish oil [Fish Oil] 1,200 (144-216) mg Capsule
1 cap PO DAILY
biotin 5,000 mcg Tablet,Chewable
5,000 mcg PO DAILY
melatonin
10 mg PO HS
Rx Instructions:
unknown dose
famotidine
40 mg PO HS
finasteride
5 mg PO DAILY
minoxidil 2.5 mg Tablet
2.5 mg PO BID
rosuvastatin 10 mg Tablet
10 mg PO DAILY
omeprazole 20 mg Tablet,Delayed Release (Dr/Ec)
20 mg PO DAILY
Centrum Silver Women 8 mg iron-400 mcg-50 mcg Tablet
1 tab PO DAILY
Glucosamine Chondroitin 550-30-1 mg Capsule
1 cap PO DAILY
aspirin 81 mg Tablet,Chewable
81 mg PO DAILY 30 Days Qty: 30 0RF
Referrals:
Gio Torres MD [Active] -
Activity Restrictions/Additional Instructions:
Please call for follow-up with your neurologist as soon as possible. Return to the emergency department with acute or worsening symptoms
Interventions
Interventions:
*Risk Screen - Suicide Last Done: 04/05/24 12:55
*General Assessment Last Done: 04/05/24 12:55
*Neglect/Abuse Screening Last Done: 04/05/24 12:55
ED- Fall Risk Assessment Last Done: 04/05/24 16:28
*ED COVID-19 Vaccine History Last Done: 04/05/24 12:55
*Nursing Disposition Last Done: 04/05/24 16:35
ED- Pulmonary Assessment Last Done: 04/05/24 16:28
ED- Neurological Assessment Last Done: 04/05/24 16:28
ED- Cardiac Assessment Last Done: 04/05/24 16:28
Discharge Date and Time
Discharge Date/Time: 04/05/24 16:39
Print Language: PALAUAN
== END 2024-04-05 16:39 | disposition home or self-care (01) ==
LOC: EMR 12:53
PROVIDERS: Student in an Organized Health Care Education/Training Program; EMERGENCY PHYSICIAN Emergency Medicine; FAMILY PHYSICIAN Family Medicine
DX: R41.89 Other symptoms and signs involving cognitive functions and awareness (principal); R03.0 Elevated blood-pressure reading, without diagnosis of hypertension; F31.9 Bipolar disorder, unspecified
CPT/HCPCS: 99285; 70450; 80053; 84484; 85025; 85610; 85730; 93005

== ENCOUNTER → 2024-04-29 10:10 | Outpatient (REF) | payer MEDICARE, SELFPAY | LOC: HWRAD 10:10 | PROVIDERS: ATTENDING PHYSICIAN Physical Medicine & Rehabilitation; FAMILY PHYSICIAN Family Medicine | DX: M47.812 Spondylosis without myelopathy or radiculopathy, cervical region (principal) | CPT/HCPCS: 72040 ==

== ENCOUNTER → 2024-05-11 18:38 | Outpatient (REF) | payer MEDICARE, SELFPAY | LOC: MRI 18:38 | PROVIDERS: ATTENDING PHYSICIAN Psychiatry & Neurology Neurology; FAMILY PHYSICIAN Family Medicine | DX: I63.81 Other cerebral infarction due to occlusion or stenosis of small artery (principal) | CPT/HCPCS: 70544; 70549; A9585 ==

== ENCOUNTER → 2024-06-25 10:11 | Outpatient (REF) | payer MEDICARE, SELFPAY | LOC: PAVMRI 10:11 | PROVIDERS: ATTENDING PHYSICIAN Physical Medicine & Rehabilitation; FAMILY PHYSICIAN Family Medicine | DX: M54.12 Radiculopathy, cervical region (principal) | CPT/HCPCS: 72141 ==

== ENCOUNTER → 2024-09-20 13:30 | Outpatient (REF) | payer MEDICARE, SELFPAY | LOC: HWCARD 13:30 | PROVIDERS: ATTENDING PHYSICIAN Physical Medicine & Rehabilitation; FAMILY PHYSICIAN Family Medicine | DX: Z01.818 Encounter for other preprocedural examination (principal) | CPT/HCPCS: 93005 ==

== ENCOUNTER 2024-09-20 17:50 | Emergency (ER) | payer MEDICARE, SELFPAY ==
[2024-09-20 17:51] VITALS: BP 141/91
[2024-09-20 17:56] LABS: Glucose - Point of Care 114 mg/dl (70-99)
--- NOTE | 2024-09-20 18:27 | ED.CVA ---
History of Present Illness
General
Chief Complaint: CVA/TIA Symptoms
Source: patient, significant other and other
Exam Limitations: none
Time Seen by Provider: 09/20/24 18:09
Nursing documentation reviewed up to this point in time: agreed with
Onset of Stroke Symptoms
Onset of symptoms known: Yes
Date of onset of symptoms: 09/20/24
History of Present Illness
History of Present Illness:
Patient presents to ED for evaluation after multiple episodes of confusion and difficulty with speech, starting this morning. Each episode lasted approximately an hour with spontaneous resolution. At the time of exam in ED, patient states that her
symptoms have resolved completely. Patient was admitted to the hospital 1 year ago, with similar complaint. Patient is currently taking aspirin daily, but has not taken any aspirin for the past 5 days secondary to planned procedure for worsening
pain. Denies headache. Denies slurred speech. Denies dizziness. Denies blurred vision. Denies loss of sensation or weakness. Denies difficulty with ambulation.
Past History
Past History
ED Past Medical History: Psychiatric (Anxiety, depression, Bipolar, ADHD, ) and Other (Terrets)
ED Past Surgical History: Orthopedic (Foot surgery, ), Tonsilectomy and Other (Facial surgery, Breast surgery, oral surgery, )
Social History
Tobacco: Non-smoker
Alcohol: Occasional
Personal: Single
Living: alone
Review of Systems
Review of Systems
Allergies reviewed?: Yes
All Other Systems: ROS reviewed and negative except as documented in HPI and ROS
Constitutional: Reports no symptoms
Respiratory: Reports no symptoms
Cardiac: Reports no symptoms
ABD/GI: Reports no symptoms
Musculoskeletal: Reports no symptoms
Skin: Reports no symptoms
Neurological: Reports other (Confusion with difficulty speaking)
Phy Exam
Physical Exam
Physical Exam:
Physical Exam
General: no apparent distress, not acutely ill. afebrile
Head: nc/at. eomi
Neck: supple. normal range of motion. no carotid bruit noted.
Heart: s1/s2 regular rate and rhythm
Lungs: no acute respiratory distress. clear bilaterally
Abdomen: normal bowel sounds. not tender.
Neuro: alert and oriented x 3. no focal sensory/motor deficit. normal speech.
Skin: no rash
Psychiatric: well kept. interactive and cooperative
Extremities: no edema. no calf tenderness
Course
Orders/Labs/Results
Orders:
Orders
09/20/24 17:54
EKG [Electrocardiogram (*1)] Urgent
Reason for Study: TIA/Stroke
CT Head W/o Iv Contrast Urgent
Comment:
Reason For Exam: expressive aphasia x2 today
09/20/24 17:55
EKG- Treatment ONCE
09/20/24 18:45
Complete Blood Count/With Diff Urgent
Comprehensive Metabolic Panel Urgent
Prothrombin Time Urgent
Troponin I Urgent
Abnormal Lab Results
09/20/24 09/20/24
17:54 18:45
RBC 4.17 L 10^6/uL
(4.20-5.40)
Absolute Monos (auto) 0.8 H 10^3/uL
(0.1-0.6)
Monocytes % 10.5 H %
(1.7-9.3)
BUN 22 H mg/dl
(7-17)
Glucose 101 H mg/dl
(70-99)
POC Glucose 114 H mg/dl
(70-99)
09/20/24 18:45
09/20/24 18:45
Vital Signs
Initial and Last Documented VS:
Initial Vital Signs
Temp Pulse Resp BP Pulse Ox
98.8 F 105 17 141/91 99
09/20/24 17:51 09/20/24 17:51 09/20/24 17:51 09/20/24 17:51 09/20/24 17:51
Last Documented Vital Signs
Temp Pulse Resp BP Pulse Ox
98.8 F 89 19 144/84 98
09/20/24 17:51 09/20/24 18:45 09/20/24 18:45 09/20/24 18:39 09/20/24 18:48
MDM/Problems Addressed
MDM/Problems Addressed:
CT head report reviewed and discussed with patient.
Patient with an unremarkable workup in ED, including CT head and blood work.
Discussed with on-call neurology, Dr. Torres, and discussed all findings. Patient patient's multiple similar episodes, along with recent MRI brain, does not feel the patient needs another admission to the hospital for further workup. Recommends
patient to be discharged home and to contact his office for an outpatient consultation. Return precautions provided to the patient and her significant other, at time of discharge.
*EKG
Interpreted by ED Provider?: Yes
EKG Intrepretation Date: 09/20/24
Heart Rate: 92
Rate: normal
Rhythm: sinus
[place]: normal axis
Interval: normal interval
ED Attending Note
-
Portions of this chart may have been created with voice recognition software.� Occasional wrong word or��sound alike� substitutions may have occurred due to the inherent limitations of voice recognition software.
Discharge Plan
Departure
Patient Disposition: Home (Routine Discharge)
Date of Disposition: 09/20/24
Time of Disposition: 19:56
Patient with high blood pressure during this ER visit?: Yes
Condition: Good
Discharge Problem:
Acute confusion
Instructions: Delirium (confusion)
Prescriptions:
No Action
lamotrigine 200 mg tablet extended release 24hr
200 mg PO BID
Ingrezza 40 mg capsule
40 mg PO DAILY
calcium 600 mg Capsule
1,800 mg PO DAILY
omega 4-ozr-ebx-fish oil [Fish Oil] 1,200 (144-216) mg Capsule
1 cap PO DAILY
biotin 5,000 mcg Tablet,Chewable
5,000 mcg PO DAILY
melatonin
10 mg PO HS
Rx Instructions:
unknown dose
famotidine
40 mg PO HS
finasteride
5 mg PO DAILY
minoxidil 2.5 mg Tablet
2.5 mg PO BID
rosuvastatin 10 mg Tablet
10 mg PO DAILY
omeprazole 20 mg Tablet,Delayed Release (Dr/Ec)
20 mg PO DAILY
Centrum Silver Women 8 mg iron-400 mcg-50 mcg Tablet
1 tab PO DAILY
Glucosamine Chondroitin 550-30-1 mg Capsule
1 cap PO DAILY
aspirin 81 mg Tablet,Chewable
81 mg PO DAILY 30 Days Qty: 30 0RF
Referrals:
Gio Torres MD [Active] -
Micki Melendez DO [Family Provider] -
Activity Restrictions/Additional Instructions:
As discussed, please follow-up with your neurologist for further evaluation and treatment. Please call office in a.m. to make an appointment. Please consider return to ED with worsening symptoms.
Interventions
Interventions:
*Risk Screen - Suicide Last Done: 09/20/24 17:54
*General Assessment Last Done: 09/20/24 17:54
*Neglect/Abuse Screening Last Done: 09/20/24 17:54
*ED- Fall Risk Assessment Last Done: 09/20/24 18:48
*ED COVID-19 Vaccine History Last Done: 09/20/24 17:54
ED- Pulmonary Assessment Last Done: 09/20/24 18:48
ED- Neurological Assessment Last Done: 09/20/24 18:48
ED- Cardiac Assessment Last Done: 09/20/24 18:48
ED Swallowing Screen Last Done: 09/20/24 18:48
Discharge Date and Time
Print Language: UGANDAN
[2024-09-20 18:39] VITALS: BP 144/84
[2024-09-20 18:47] VITALS: BMI 22.3
[2024-09-20 18:51] LABS: % Basophils 0.8 % (0-2); % Eosinophils 0.5 % (0-6); % Immature Granulocytes 0.3 % (0-0.5); % Lymphocytes 20.8 % (20.5-51.1); % Monocytes 10.5 % (1.7-9.3); % Neutrophils 67.1 % (42.2-75.2); Absolute Basophils 0.1 10^3/uL (0-0.2); Absolute Lymphocytes 1.5 10^3/uL (1.2-3.4); Absolute Monocytes 0.8 10^3/uL (0.1-0.6); Hematocrit 38.3 % (37.0-47.0); Hemoglobin 12.8 g/dL (12.0-16.0); Mean Corp Hgb Conc. 33.4 g/dL (33.0-37.0); Mean Corpuscular Hgb 30.7 pg (27.0-31.0); Mean Corpuscular Volume 91.8 fL (81.0-99.0); Mean Platelet Volume 10.2 fL (7.4-10.4); Nucleated Red Blood Cells % 0 %; Platelet Count 226 10^3/uL (130-400); Red Blood Cell Count 4.17 10^6/uL (4.20-5.40); Red Cell Dist. Width 12.8 % (11.5-14.5); White Blood Cell Count 7.4 10^3/uL (4.8-10.8)
[2024-09-20 19:00] VITALS: BP 121/76
[2024-09-20 19:01] LABS: INR 0.86; PT 12.1 Sec (11.4-14.6)
[2024-09-20 19:05] LABS: ALT (SGPT) 23 U/L (0-35); AST (SGOT) 24 U/L (14-36); Albumin 4.8 g/dl (3.5-5.0); Alkaline Phosphatase 67 U/L (38-126); Blood Urea Nitrogen 22 mg/dl (7-17); Calcium 9.8 mg/dl (8.4-10.2); Carbon Dioxide 30 mmol/L (22-30); Chloride 103 mmol/L (98-107); Estimated Creatinine Clearance 57 ml/min; Glucose 101 mg/dl (70-99); Potassium 4.6 mmol/L (3.5-5.1); Sodium 138 mmol/L (135-145); Total Bilirubin 0.3 mg/dl (0.2-1.3); Total Protein 6.9 g/dl (6.3-8.2); eGFR > 60.00
[2024-09-20 19:16] LABS: Troponin I < 0.012 ng/ml
[2024-09-20 20:00] VITALS: BP 116/70
== END 2024-09-20 20:20 | disposition home or self-care (01) ==
LOC: EMR 17:50
PROVIDERS: EMERGENCY PHYSICIAN Emergency Medicine; FAMILY PHYSICIAN Family Medicine
DX: R41.0 Disorientation, unspecified (principal); R47.89 Other speech disturbances; Z79.82 Long term (current) use of aspirin
CPT/HCPCS: 99284; 70450; 80053; 82962; 84484; 85025; 85610; 93005

== ENCOUNTER → 2024-10-24 10:56 | Outpatient (REF) | payer MEDICARE, SELFPAY ==
--- NOTE | 2024-10-24 19:40 | EEG.RPT ---
Electroencephalogram Report
Recording
Date of EE10/24/24
Type of EEG: Routine
Length of EEG recordin mins
Done with Video Recording: Yes
Patient Status: Outpatient
Recording Conditions: Awake and Asleep
Hyperventilation Performed: No
Photic Stimulation Performed: Yes
Report
Clinical Background:�She is a 69 year old woman with episodes of confusion and difficulty with speech
Introduction: A routine bedside EEG was done using International 10-20 electrode placement protocol.
Background: In the most alert state, the PDR is 9-10 Hz in frequency with normal amplitude. There is spontaneous variability and reactivity.�
Sleep: Stage I and II sleep is seen.�
Focal/epileptiform: Sharp waves seen F7 every ~1-2 minutes in awake and asleep. No clinical or electrographic seizures occurred during this recording.
Photic stimulation: resulted in no background change. There was no photo myogenic or photoparoxysmal response.�
Impression: left frontotemporal sharp waves
Clinical Correlation: In a patient with epilepsy, this EEG would provide evidence for focal mechanism of seizure onset from the left frontotemporal region.
== END ==
LOC: EEG 10:56
PROVIDERS: ATTENDING PHYSICIAN Psychiatry & Neurology Neurology; FAMILY PHYSICIAN Family Medicine
DX: R41.3 Other amnesia (principal)
CPT/HCPCS: 95813

== ENCOUNTER → 2024-11-17 10:59 | Outpatient (REF) | payer MEDICARE, SELFPAY ==
--- NOTE | 2024-11-17 13:10 | EEG.RPT ---
Electroencephalogram Report
Recording
Date of EE11/17/24
Type of EEG: Routine
Length of EEG recordin minutes
Done with Video Recording: No
Patient Status: Inpatient
Recording Conditions: Awake, Drowsy and Asleep
Hyperventilation Performed: No
Photic Stimulation Performed: Yes
Report
LESS THAN 1 HOUR EEG INTERPRETATION:
Unremarkable EEG for age
CLINICAL CORRELATION:
A normal EEG does not rule out a diagnosis of epilepsy. If clinical suspicion for seizure persists, a prolonged recording may be warranted.
Clinical correlation is advised.
METHODS:
A 21 channel digitized electroencephalogram (EEG) was performed using the 10/20 international system of electrode placement and one-lead of ECG recorded. The [employer] quantitative EEG system was utilized.
ELECTROENCEPHALOGRAPHER IMPRESSION(S):
Quality of study
Good
Background
There was an unremarkable anterior-posterior voltage gradient of alpha frequency.
With eye opening the background activity changed to a low voltage mixture of frequencies.
There were no significant asymmetries of background activity noted.
Sleep
Drowsiness present
Stage 1 present
Stage 2 present
Photic Stimulation
No activation
ECG
Normal sinus rhythm
== END ==
LOC: EEG 10:59
PROVIDERS: ATTENDING PHYSICIAN Psychiatry & Neurology Neurology; FAMILY PHYSICIAN Family Medicine
DX: R94.01 Abnormal electroencephalogram [EEG] (principal)
CPT/HCPCS: 95813

== ENCOUNTER → 2024-12-09 06:54 | Outpatient (REF) | payer MEDICARE, SELFPAY | LOC: RAD 06:54 | PROVIDERS: ATTENDING PHYSICIAN Physician Assistant Medical; FAMILY PHYSICIAN Family Medicine | DX: R60.0 Localized edema (principal) | CPT/HCPCS: 70491; Q9967 ==

== ENCOUNTER → 2024-12-15 09:51 | Outpatient (REF) | payer MEDICARE, SELFPAY | LOC: HWRAD 09:51 | PROVIDERS: ATTENDING PHYSICIAN Physician Assistant Medical; REFERRING PHYSICIAN Otolaryngology | DX: E07.9 Disorder of thyroid, unspecified (principal) | CPT/HCPCS: 76536 ==

== ENCOUNTER → 2025-02-01 09:46 | Outpatient (REF) | payer MEDICARE, SELFPAY | LOC: RST 09:46 | PROVIDERS: ATTENDING PHYSICIAN Nurse Practitioner Family; FAMILY PHYSICIAN Family Medicine; REFERRING PHYSICIAN Otolaryngology | DX: K21.9 Gastro-esophageal reflux disease without esophagitis (principal); R13.10 Dysphagia, unspecified | CPT/HCPCS: 74230; 92611 ==

== ENCOUNTER 2025-03-21 06:53 | Outpatient (RCR) | payer MEDICARE, SELFPAY | END 2025-03-21 23:59 | disposition home or self-care (01) | LOC: RST 06:53 | PROVIDERS: ATTENDING PHYSICIAN Registered Nurse Critical Care Medicine | DX: R13.12 Dysphagia, oropharyngeal phase (principal); R41.3 Other amnesia (principal); R68.89 Other general symptoms and signs; R41.841 Cognitive communication deficit | CPT/HCPCS: 96125; 97129; 97130 ==

== ENCOUNTER 2025-04-11 08:44 | Outpatient (RCR) | payer MEDICARE, SELFPAY | END 2025-04-11 23:59 | disposition home or self-care (01) | LOC: RST 08:44 | PROVIDERS: ATTENDING PHYSICIAN Registered Nurse Critical Care Medicine | DX: R41.3 Other amnesia (principal); R41.841 Cognitive communication deficit; R13.12 Dysphagia, oropharyngeal phase; R68.89 Other general symptoms and signs | CPT/HCPCS: 97129; 97130 ==

== ENCOUNTER 2025-04-13 06:26 | Day surgery (SDC) | payer MEDICARE, SELFPAY ==
[2025-04-03 12:54] VITALS: BMI 22.0
--- NOTE | 2025-04-06 10:35 | PTCARENOTE ---
Patient requesting further approval to take Melatonin, Magnesium and Benadryl up to night before surgery. Dr. Osman contacted- stated it was fine for her do to so- patient informed of same.
[2025-04-13] VITALS (8 sets, daily range): BP systolic 109–138; BP diastolic 71–84; BMI 22.0
[2025-04-13] MEDS: CELEBREX 200 MG PO (08:18)
[2025-04-13] MEDS: TYLENOL 1000 MG PO (08:18)
[2025-04-13] MEDS: NORMOSOL-R/PLASMALYTE-A 1000 IV (08:27)
--- NOTE | 2025-04-13 15:11 | CM ---
mine manager met with patient and reviewed chart, patient was seen by physical therapy, and they had concern, regarding discharge today, when patient's significant other came physical therapy were more comfortable with discharge, walker was
provided, patient has declined visiting nurses.
Plan; Home to significant others home no needs, patient has declined visiting nurses, walker provided.
== END 2025-04-13 14:10 | disposition home or self-care (01) ==
LOC: SDS 06:26
PROVIDERS: ATTENDING PHYSICIAN Student in an Organized Health Care Education/Training Program; FAMILY PHYSICIAN Family Medicine
DX: M20.41 Other hammer toe(s) (acquired), right foot (principal)
CPT/HCPCS: 28308; 28285 ×2; 97163; C1713; C1776